=== PATIENT | male | born 1950 | race Two or more races ===

== ENCOUNTER 2017-10-07 10:09 | Inpatient (IN) | payer OTHER ==
[~2017-10-07] VITALS: Ht 177.8 cm; Wt 88.9 kg
[2017-10-15] MEDS ORDERED: PROVENTIL HFA6.7 GM IH (09:22)
[2017-10-15] MEDS ORDERED: Septra Ds Tablet PO (09:22)
[2017-10-15] MEDS ORDERED: MEDROLPACK PO (09:22)
== END 2017-10-15 11:11 | disposition home or self-care (01) | DRG 975 ==
LOC: ER 10:09 → SURH 18:35 → SEC-K 18:35 → MEDI 10-09 05:12 → SURH 10-09 05:12
PROC: 3E0F7GC Introduction of Other Therapeutic Substance into Respiratory Tract, Via Natural or Artificial Opening (ICD-10-PCS; principal; 2017-10-07)
PROC: 4A033R1 Measurement of Arterial Saturation, Peripheral, Percutaneous Approach (ICD-10-PCS; 2017-10-07)
PROC: BW24ZZZ Computerized Tomography (CT Scan) of Chest and Abdomen (ICD-10-PCS; 2017-10-07)
PROC: 8E0ZXY6 Isolation (ICD-10-PCS; 2017-10-08)
PROC: 4A12X4Z Monitoring of Cardiac Electrical Activity, External Approach (ICD-10-PCS; 2017-10-10)
PROC: B246ZZZ Ultrasonography of Right and Left Heart (ICD-10-PCS; 2017-10-11)
DX: B20 Human immunodeficiency virus [HIV] disease (principal); J18.9 Pneumonia, unspecified organism; J45.41 Moderate persistent asthma with (acute) exacerbation; J44.1 Chronic obstructive pulmonary disease with (acute) exacerbation; B37.0 Candidal stomatitis; R09.02 Hypoxemia; E78.4 Other hyperlipidemia; E03.8 Other specified hypothyroidism; N40.0 Benign prostatic hyperplasia without lower urinary tract symptoms; I10 Essential (primary) hypertension

== ENCOUNTER 2020-04-28 13:08 | Outpatient (CLI) | payer OTHER ==
[~2020-04-28 13:08] MED LIST: MEDROLPACK PO; PROVENTIL HFA6.7 GM IH; Septra Ds Tablet PO
== END 2020-04-28 13:16 | disposition home or self-care (01) ==
LOC: LAB 13:08
PROVIDERS: ATTEND Radiology Diagnostic Radiology
DX: N20.0 Calculus of kidney (principal)

== ENCOUNTER 2020-05-08 21:15 | Emergency (ER) | payer OTHER ==
[~2020-05-08] VITALS: Ht 177.8 cm; Wt 85.3 kg
[2020-05-08] MEDS ORDERED: ATAZANAVIR SUL300 MG PO (21:50)
[2020-05-08] MEDS ORDERED: ATORVASTATIN CA10 MG PO (21:50)
[2020-05-08] MEDS ORDERED: CLONAZEPAM2 MG PO (21:51)
[2020-05-08] MEDS ORDERED: TIVICAY50 MG PO (21:51)
[2020-05-08] MEDS ORDERED: VALSARTAN80 MG PO (21:51)
[2020-05-08] MEDS ORDERED: RITONAVIR100 MG PO (21:52)
[2020-05-08] MEDS ORDERED: SYMBICORT 16010.2 GM IH (21:52)
[2020-05-08] MEDS ORDERED: TAMS0.4C PO (21:52)
[2020-05-08] MEDS ORDERED: [UNRECOGNIZED DRUG - OTHER] SQ (21:53)
[2020-05-09] MEDS ORDERED: CEFUROXIME500 MG PO (06:39)
== END 2020-05-09 06:44 | disposition home or self-care (01) ==
LOC: ER 21:15
DX: N40.1 Benign prostatic hyperplasia with lower urinary tract symptoms (principal); R33.8 Other retention of urine; R31.0 Gross hematuria

== ENCOUNTER 2020-05-12 12:15 | Inpatient (IN) | payer OTHER ==
[~2020-05-12] VITALS: Ht 177.8 cm; Wt 856.4 kg
[~2020-05-12 12:15] MED LIST changes: +ATAZANAVIR SUL300 MG PO; +ATORVASTATIN CA10 MG PO; +CEFUROXIME500 MG PO; +CLONAZEPAM2 MG PO; +RITONAVIR100 MG PO; +SYMBICORT 16010.2 GM IH; +TAMS0.4C PO; +TIVICAY50 MG PO; +VALSARTAN80 MG PO; +[UNRECOGNIZED DRUG - OTHER] SQ
[2020-05-12] MEDS ORDERED: SPIRIVA RESPIMAT4 G1 IH (14:14)
[2020-05-12] MEDS ORDERED: SYMBICORT 16010.2 GM (14:15)
[2020-05-12] MEDS ORDERED: NORVIR80 MG/1 ML PO (14:15)
[2020-05-19] MEDS ORDERED: ATAZANAVIR SUL300 MG (09:00)
[2020-05-19] MEDS ORDERED: GABAPENTIN300 M2 (09:00)
[2020-05-19] MEDS ORDERED: FINASTERIDE5 MG (09:00)
[2020-05-19] MEDS ORDERED: REFRESH OPTIVE10 M1 (09:01)
[2020-05-19] MEDS ORDERED: SYSTANE ULTRA 010 ML (09:01)
== END 2020-05-20 10:46 | disposition home or self-care (01) | DRG 717 ==
LOC: ADM 12:15 → EDSTATUS 12:15 → O/R 05-18 05:00 → SURH 05-18 05:00 → O/R 05-18 11:39 → SURH 05-18 12:15
PROVIDERS: ADMIT Urology; ATTEND Urology
PROC: 3E0F73Z Introduction of Anti-inflammatory into Respiratory Tract, Via Natural or Artificial Opening (ICD-10-PCS; 2020-05-18)
PROC: 3E0F7SF Introduction of Other Gas into Respiratory Tract, Via Natural or Artificial Opening (ICD-10-PCS; 2020-05-18)
PROC: 0VB00ZZ Excision of Prostate, Open Approach (ICD-10-PCS; principal; 2020-05-18 08:00)
PROC: 4A12X4Z Monitoring of Cardiac Electrical Activity, External Approach (ICD-10-PCS; 2020-05-19)
DX: N40.2 Nodular prostate without lower urinary tract symptoms (principal); J44.1 Chronic obstructive pulmonary disease with (acute) exacerbation; R33.8 Other retention of urine; R31.0 Gross hematuria; I10 Essential (primary) hypertension; E78.5 Hyperlipidemia, unspecified

== ENCOUNTER 2020-05-22 09:38 | Emergency (ER) | payer OTHER ==
[~2020-05-22] VITALS: Ht 177.8 cm; Wt 85.3 kg
[~2020-05-22 09:38] MED LIST changes: +ATAZANAVIR SUL300 MG; +FINASTERIDE5 MG; +GABAPENTIN300 M2; +NORVIR80 MG/1 ML PO; +REFRESH OPTIVE10 M1; +SPIRIVA RESPIMAT4 G1 IH; +SYMBICORT 16010.2 GM; +SYSTANE ULTRA 010 ML
== END 2020-05-22 12:25 | disposition home or self-care (01) ==
LOC: ER 09:38
DX: R33.8 Other retention of urine (principal); N99.89 Other postprocedural complications and disorders of genitourinary system; Y83.8 Other surgical procedures as the cause of abnormal reaction of the patient, or of later complication, without mention of misadventure at the time of the procedure; I10 Essential (primary) hypertension

== ENCOUNTER 2020-05-25 06:09 | Emergency (ER) | payer OTHER ==
[~2020-05-25] VITALS: Ht 177.8 cm; Wt 85.3 kg
== END 2020-05-25 09:40 | disposition home or self-care (01) ==
LOC: ER 06:09
DX: R34 Anuria and oliguria (principal); R10.2 Pelvic and perineal pain; T83.021A Displacement of indwelling urethral catheter, initial encounter; T83.84XA Pain due to genitourinary prosthetic devices, implants and grafts, initial encounter; Y84.6 Urinary catheterization as the cause of abnormal reaction of the patient, or of later complication, without mention of misadventure at the time of the procedure

== ENCOUNTER 2020-05-28 10:46 | Emergency (ER) | payer OTHER ==
[~2020-05-28] VITALS: Ht 177.8 cm; Wt 83.9 kg
== END 2020-05-28 16:55 | disposition home or self-care (01) ==
LOC: ER 10:46
DX: T83.84XA Pain due to genitourinary prosthetic devices, implants and grafts, initial encounter (principal); T83.098A Other mechanical complication of other urinary catheter, initial encounter; Y84.6 Urinary catheterization as the cause of abnormal reaction of the patient, or of later complication, without mention of misadventure at the time of the procedure

== ENCOUNTER 2020-06-20 12:46 | Emergency (ER) | payer OTHER ==
[~2020-06-20] VITALS: Ht 177.8 cm; Wt 81.6 kg
[2020-06-20] MEDS ORDERED: DIOVAN40 MG PO (12:58)
== END 2020-06-20 16:59 | disposition home or self-care (01) ==
LOC: ER 12:46
DX: N45.1 Epididymitis (principal); N39.0 Urinary tract infection, site not specified; B96.1 Klebsiella pneumoniae [K. pneumoniae] as the cause of diseases classified elsewhere

== ENCOUNTER → 2020-07-28 10:21 | Outpatient (CLI) | payer OTHER ==
[~2020-07-28 10:21] MED LIST changes: +CIPRO500 MG PO; +DIOVAN40 MG; +DIOVAN40 MG PO; +LEVOFLOXACIN750 MG PO; +POLY119PG PO; +ULTRACET PO
== END | disposition home or self-care (01) ==
LOC: LAB 10:21
PROVIDERS: ATTEND Urology
DX: N30.00 Acute cystitis without hematuria (principal); B96.1 Klebsiella pneumoniae [K. pneumoniae] as the cause of diseases classified elsewhere

== ENCOUNTER 2020-08-02 03:50 | Emergency (ER) | payer OTHER ==
[~2020-08-02] VITALS: Ht 177.8 cm; Wt 81.6 kg
[~2020-08-02 03:50] MED LIST changes: -CIPRO500 MG PO; -DIOVAN40 MG; -LEVOFLOXACIN750 MG PO; -POLY119PG PO; -ULTRACET PO
[2020-08-02] MEDS ORDERED: LEVOFLOXACIN750 MG PO (15:17)
== END 2020-08-02 15:33 | disposition home or self-care (01) ==
LOC: ER 03:50
DX: B20 Human immunodeficiency virus [HIV] disease (principal); R10.11 Right upper quadrant pain; R10.31 Right lower quadrant pain

== ENCOUNTER → 2020-09-01 06:39 | Outpatient (CLI) | payer OTHER ==
[~2020-09-01 06:39] MED LIST changes: +CIPRO500 MG PO; +DIOVAN40 MG; +LEVOFLOXACIN750 MG PO; +POLY119PG PO; +ULTRACET PO
== END | disposition home or self-care (01) ==
LOC: LAB 06:39
PROVIDERS: ATTEND Urology
DX: N30.00 Acute cystitis without hematuria (principal)

== ENCOUNTER 2020-10-12 09:34 | Day surgery (SDC) | payer OTHER ==
[~2020-10-12 09:34] MED LIST changes: -CIPRO500 MG PO; -DIOVAN40 MG; -POLY119PG PO; -ULTRACET PO
[2020-10-12] MEDS ORDERED: ULTRACET PO (12:32)
[2020-10-12] MEDS ORDERED: CIPRO500 MG PO (12:33)
[2020-10-12] MEDS ORDERED: POLY119PG PO (12:34)
== END 2020-10-12 16:00 | disposition home or self-care (01) ==
LOC: CIR.AMB 09:34
PROVIDERS: ATTEND Surgery
DX: K80.10 Calculus of gallbladder with chronic cholecystitis without obstruction (principal); K42.0 Umbilical hernia with obstruction, without gangrene; Z20.822 Contact with and (suspected) exposure to COVID-19; K43.0 Incisional hernia with obstruction, without gangrene

== ENCOUNTER 2020-10-25 11:38 | Emergency (ER) | payer OTHER ==
[~2020-10-25] VITALS: Ht 177.8 cm; Wt 80.7 kg
[~2020-10-25 11:38] MED LIST changes: +CIPRO500 MG PO; +POLY119PG PO; +ULTRACET PO
[2020-10-25] MEDS ORDERED: DIOVAN40 MG (11:52)
== END 2020-10-25 16:52 | disposition home or self-care (01) ==
LOC: ER 11:38
DX: L03.311 Cellulitis of abdominal wall (principal)

== ENCOUNTER 2021-02-21 10:28 | Outpatient (CLI) | payer OTHER ==
[~2021-02-21 10:28] MED LIST changes: +DIOVAN40 MG
== END 2021-02-21 18:50 | disposition home or self-care (01) ==
LOC: LAB 10:28
PROVIDERS: ATTEND Urology
DX: N30.00 Acute cystitis without hematuria (principal)

== ENCOUNTER 2021-03-20 06:17 | Outpatient (CLI) | payer OTHER | END 2021-03-20 06:18 | disposition home or self-care (01) | LOC: LAB 06:17 | PROVIDERS: ATTEND Urology | DX: N30.00 Acute cystitis without hematuria (principal) ==

== ENCOUNTER 2021-03-31 13:10 | Outpatient (CLI) | payer OTHER | END 2021-03-31 13:22 | disposition home or self-care (01) | LOC: SONOGRAMA 13:10 | PROVIDERS: ATTEND Internal Medicine | DX: I86.1 Scrotal varices (principal); N45.1 Epididymitis; N50.89 Other specified disorders of the male genital organs ==

== ENCOUNTER 2021-04-12 13:57 | Emergency (ER) | payer OTHER ==
[~2021-04-12] VITALS: Ht 177.8 cm; Wt 79.4 kg
[2021-04-12] MEDS ORDERED: NORVIR100 M1 PO (14:50)
[2021-04-12] MEDS ORDERED: LIPITOR20 MG PO (14:51)
== END 2021-04-12 17:17 | disposition home or self-care (01) ==
LOC: ER 13:57
DX: R31.9 Hematuria, unspecified (principal); R30.0 Dysuria; R53.1 Weakness; I10 Essential (primary) hypertension; B20 Human immunodeficiency virus [HIV] disease

== ENCOUNTER 2021-04-20 11:20 | Outpatient (CLI) | payer OTHER ==
[~2021-04-20 11:20] MED LIST changes: +LIPITOR20 MG PO; +NORVIR100 M1 PO
== END 2021-04-20 11:24 | disposition home or self-care (01) ==
LOC: RAD 11:20
PROVIDERS: ATTEND Orthopaedic Surgery
DX: M25.561 Pain in right knee (principal); M25.562 Pain in left knee